=== PATIENT | female | born 1960 | race Caucasian/White ===

== ENCOUNTER → 2018-06-01 | Outpatient (CLI) | payer BC ==
[~2018-06-01] MED LIST: DOBUTamine DRIP for NUC MED 500 MG in DEXTROSE/WATER 1 250ML.BAG IV ONE
--- NOTE | 2018-06-01 15:43 | EST ---
EXERCISE STRESS AGE: 58 SEX: F HT: 5 foot 5 WT: 152 PROTOCOL: Stress Echo STAGE: III DURATION OF EXERCISE: 10:02 HEART RATE REST: 67 BLOOD PRESSURE REST: 110/72 MAXIMUM HEART RATE ACHIEVED: 143 MAXIMUM BLOOD PRESSURE: 159/80 85% MPHR: 137 100% MPHR: 161 METS: 11.5 CLINICAL INFORMATION: Baseline rhythm is sinus mechanism, rate of 67, normal axis and intervals normal cardiogram baseline blood pressure 110/72 mmHg. Patient exercised on Matt protocol for 10 minute 2 seconds reaching a peak rate of 143 beats per minute which is equal to 88% maximum predicted heart rate. Peak blood pressure 137/67 mmHg. Test was terminated because of fatigue. No chest pain. Electrocardiograph monitoring revealed no evidence of diagnostic ischemic ST deviation. FINDINGS: Baseline echocardiogram revealed normal function, at peak exercise there was normal wall motion augmentation with no hypokinesis or dyskinesis. CONCLUSION: 1. Good exercise tolerance with normal electrocardiograph response to exercise. 2. Normal stress echocardiogram with no evidence of stress induced ischemia. MMODL / IJN: [id number] /
== END | disposition home or self-care (01) ==
LOC: RADNMMAIN 09:43
PROVIDERS: ATTEND Family Medicine
DX: R06.00 Dyspnea, unspecified (principal)
CPT/HCPCS: 93351; J1250

== ENCOUNTER → 2019-09-04 | Outpatient (CLI) | payer BC ==
--- NOTE | 2019-09-04 15:10 | CT ---
EXAMINATION TYPE: CT abdomen pelvis wo con DATE OF EXAM: 09/04/2019 COMPARISON: None HISTORY: Recurrent bladder infections with flank pain CT DLP: 404.9 mGycm Examination of the solid and hollow viscera is limited given the lack of contrast. FINDINGS: LUNG BASES: No evidence for nodule. No evidence for infiltrate. LIVER/GB: The gallbladder surgically absent. No space-occupying hepatic lesion. PANCREAS: No pancreatic mass identified. No inflammatory process seen. SPLEEN: No evidence for splenomegaly. No intrasplenic lesions seen. ADRENALS: No adrenal nodules identified. No evidence for thickening. KIDNEYS: No evidence for renal mass. No nephrolithiasis. No hydronephrosis. BOWEL: Appendix has a normal appearance. No evidence of bowel obstruction. No inflammatory process. M ild fecal stasis noted. Lymph nodes: No evidence for adenopathy greater than 1 cm. Abdominal aorta: Atheromatous changes seen. No evidence for aneurysm. Genital organs: No obvious uterine mass is identified. No evidence for adnexal mass. Other: Severe degenerative change of with vacuum disc L5-S1. IMPRESSION: NO SIGNIFICANT ACUTE ABNORMALITY OF THE ABDOMEN OR PELVIS.
== END | disposition home or self-care (01) ==
LOC: RADCTMAIN 14:43
PROVIDERS: ATTEND Nurse Practitioner Adult Health
DX: D25.9 Leiomyoma of uterus, unspecified (principal)
CPT/HCPCS: 74176

== ENCOUNTER 2020-05-13 08:52 | Emergency (ER) | payer BC ==
[2020-05-13 08:58] VITALS: TEMP 98.3
[2020-05-13] MEDS ORDERED: KETOROLAC 30 MG/ML 1 ML VIAL IVP STA (09:13)
[2020-05-13] MEDS ORDERED: SODIUM CHLORIDE 0.9% 1,000 ML IV STA ×2 (09:13)
[2020-05-13] MEDS ORDERED: MORPHINE SULFATE 4 MG/ML SYRINGE IV STA (09:13)
[2020-05-13] MEDS ORDERED: ONDANSETRON 4 MG/2 ML VIAL IVP STA (09:13)
--- NOTE | 2020-05-13 09:16 | ED ---
Abdominal Pain HPI - General Chief Complaint: Abdominal Pain Stated Complaint: Abd Pain Time Seen by Provider: 05/13/20 08:59 Source: patient, RN notes reviewed, old records reviewed Mode of arrival: ambulatory Limitations: no limitations - History of Present Illness Initial Comments: Patient is a 60-year-old female presents for his parents today with sharp lower abdominal pain between the right and left lower quadrants for the past 3 days. She was sent here by her PCP for further evaluation for concerns for possible appendicitis are related to uterine fibroid. Patient states that she has no abnormal vaginal bleeding. She reports the pain seems to be sharp and stabbing in nature. Denies any nausea or vomiting. Denies any fevers. She reports that she has recently been under stress that she's been taking care of her is in the hospital receiving a knee replacement. Patient reports a previous cholecystectomy. - Related Data Home Medications Medication Instructions Recorded Confirmed Omeprazole [PriLOSEC] 20 mg PO DAILY 02/14/14 05/13/20 Sertraline [Zoloft] 100 mg PO DAILY 02/14/14 05/13/20 Tiotropium 18 Mcg/Puff [Spiriva] 1 puff INHALATION DAILY 02/14/14 05/13/20 Acetaminophen [Tylenol Arthritis] 1,300 mg PO HS PRN 05/13/20 05/13/20 Cetirizine HCl [Zyrtec] 10 mg PO DAILY 05/13/20 05/13/20 Oxybutynin Chloride [Ditropan XL] 5 mg PO DAILY 05/13/20 05/13/20 Previous Rx's Medication Instructions Recorded Cephalexin [Keflex] 500 mg PO Q6HR 7 Days #28 cap 05/13/20 Metoclopramide [Reglan] 10 mg PO ACHS #15 tab 05/13/20 Allergies Allergy/AdvReac Type Severity Reaction Status Date / Time No Known Allergies Allergy Verified 05/13/20 09:24 Review of Systems ROS Statement: Those systems with pertinent positive or pertinent negative responses have been documented in the HPI. ROS Other: All systems not noted in ROS Statement are negative. Past Medical History Past Medical History: COPD, GERD/Reflux, Osteoarthritis (OA) Additional Past Medical History / Comment(s): SOB w/activity, ulcerated spots in esophagus History of Any Multi-Drug Resistant Organisms: None Reported Past Surgical History: Breast Surgery, Cholecystectomy, Orthopedic Surgery, Tubal Ligation Additional Past Surgical History / Comment(s): hemangioma removed rt leg, bunion surg., breast biopsy Past Anesthesia/Blood Transfusion Reactions: Motion Sickness Past Psychological History: No Psychological Hx Reported Smoking Status: Never smoker Past Alcohol Use History: None Reported Past Drug Use History: None Reported General Exam - General Exam Comments Initial Comments: Pt is a tearful 60-year-old female. Limitations: no limitations Head exam: Present: atraumatic, normocephalic, normal inspection Eye exam: Present: normal appearance, PERRL, EOMI. Absent: scleral icterus, conjunctival injection, periorbital swelling ENT exam: Present: normal exam, mucous membranes moist Neck exam: Present: normal inspection. Absent: tenderness, meningismus, lymphadenopathy Respiratory exam: Present: normal lung sounds bilaterally. Absent: respiratory distress, wheezes, rales, rhonchi, stridor Cardiovascular Exam: Present: regular rate, normal rhythm, normal heart sounds. Absent: systolic murmur, diastolic murmur, rubs, gallop, clicks GI/Abdominal exam: Present: soft, normal bowel sounds. Absent: distended, tenderness, guarding, rebound, rigid Extremities exam: Present: normal inspection, full ROM, normal capillary refill. Absent: tenderness, pedal edema, joint swelling, calf tenderness Back exam: Present: normal inspection Neurological exam: Present: alert, oriented X3, CN II-XII intact Psychiatric exam: Present: normal affect, normal mood Skin exam: Present: warm, dry, intact, normal color. Absent: rash Course Vital Signs 05/13/20 05/13/20 05/13/20 08:56 09:29 09:30 Temperature 98.3 F Pulse Rate 77 Respiratory 17 14 14 Rate Blood Pressure 148/94 O2 Sat by Pulse 97 97 95 Oximetry 05/13/20 05/13/20 05/13/20 09:31 10:00 10:59 Temperature Pulse Rate 64 70 Respiratory 14 14 14 Rate Blood Pressure 143/87 143/87 145/85 O2 Sat by Pulse 98 97 97 Oximetry 05/13/20 05/13/20 11:53 13:04 Temperature Pulse Rate 72 66 Respiratory 18 18 Rate Blood Pressure 152/84 146/95 O2 Sat by Pulse 96 100 Oximetry - Reevaluation(s) Reevaluation #1: 05/13/20 10:35 Patient was evaluated informed of lab results and CT findings with daughter bedside. Daughters are in the hospital. Her labs are normal and CT shows mild ileus on left abdomen and uterine fibroid but no other significant symptoms related Patient abdominal pain. No signs of appendicitis. Patient still is complaining of significant sharp pains. This has only other testing to evaluate would be ultrasound to evaluate fibroid. Patient states she feels that she is have this completed today. She does not have this type of pain ever in the past. Medical Decision Making - Medical Decision Making 60 year old female with sharp abdominal pains for 4 days and sent by PCP. She has no vomiting, is passing gas and had normal BM. Patient had diffuse tenderness on exam, and CT ordered to rule out appendicitis. Patient at this time CT shows mild ileus, but has no symptoms or concern for obstruction. Patient has uterine fibroid on CT scan and after reeval was still in pain. Labs were normal. She has no vaginal bleeding. US was completed today showing 1cm cervical lesion. Discussed PCP follow up. Discussed reglan to promote GI motility and decrease nausea, and Rx for minor UTI. Urine culture obtained. - Lab Data Result diagrams: 05/13/20 09:20 05/13/20 09:20 Lab Results 05/13/20 05/13/20 05/13/20 Range/Units 09:20 09:20 09:20 WBC 4.4 (3.8-10.6) k/uL RBC 4.52 (3.80-5.40) m/uL Hgb 13.8 (11.4-16.0) gm/dL Hct 41.4 (34.0-46.0) % MCV 91.5 (80.0-100.0) fL MCH 30.5 (25.0-35.0) pg MCHC 33.4 (31.0-37.0) g/dL RDW 12.6 (11.5-15.5) % Plt Count 199 (150-450) k/uL Neutrophils % 57 % Lymphocytes % 31 % Monocytes % 6 % Eosinophils % 4 % Basophils % 1 % Neutrophils # 2.5 (1.3-7.7) k/uL Lymphocytes # 1.4 (1.0-4.8) k/uL Monocytes # 0.3 (0-1.0) k/uL Eosinophils # 0.2 (0-0.7) k/uL Basophils # 0.1 (0-0.2) k/uL PT 10.0 (9.0-12.0) sec INR 1.0 (<1.2) APTT 23.7 (22.0-30.0) sec Sodium (137-145) mmol/L Potassium (3.5-5.1) mmol/L Chloride (98-107) mmol/L Carbon Dioxide (22-30) mmol/L Anion Gap mmol/L BUN (7-17) mg/dL Creatinine (0.52-1.04) mg/dL Est GFR (CKD-EPI)AfAm (>60 ml/min/1.73 sqM) Est GFR (CKD-EPI)NonAf (>60 ml/min/1.73 sqM) Glucose (74-99) mg/dL Plasma Lactic Acid Kyle (0.7-2.0) mmol/L Calcium (8.4-10.2) mg/dL Total Bilirubin (0.2-1.3) mg/dL AST (14-36) U/L ALT (4-34) U/L Alkaline Phosphatase (38-126) U/L Total Protein (6.3-8.2) g/dL Albumin (3.5-5.0) g/dL Amylase (30-110) U/L Lipase (23-300) U/L Urine Color Yellow Urine Appearance Clear (Clear) Urine pH 6.5 (5.0-8.0) Ur Specific [place] 1.026 (1.001-1.035) Urine Protein Trace H (Negative) Urine Glucose (UA) Negative (Negative) Urine Ketones Negative (Negative) Urine Blood Negative (Negative) Urine Nitrite Negative (Negative) Urine Bilirubin Negative (Negative) Urine Urobilinogen <2.0 (<2.0) mg/dL Ur Leukocyte Esterase Large H (Negative) Urine RBC 4 (0-5) /hpf Urine WBC 12 H (0-5) /hpf Ur Squamous Epith Cells 5 H (0-4) /hpf Urine Bacteria Rare H (None) /hpf Urine Mucus Many H (None) /hpf 05/13/20 05/13/20 Range/Units 09:20 09:20 WBC (3.8-10.6) k/uL RBC (3.80-5.40) m/uL Hgb (11.4-16.0) gm/dL Hct (34.0-46.0) % MCV (80.0-100.0) fL MCH (25.0-35.0) pg MCHC (31.0-37.0) g/dL RDW (11.5-15.5) % Plt Count (150-450) k/uL Neutrophils % % Lymphocytes % % Monocytes % % Eosinophils % % Basophils % % Neutrophils # (1.3-7.7) k/uL Lymphocytes # (1.0-4.8) k/uL Monocytes # (0-1.0) k/uL Eosinophils # (0-0.7) k/uL Basophils # (0-0.2) k/uL PT (9.0-12.0) sec INR (<1.2) APTT (22.0-30.0) sec Sodium 139 (137-145) mmol/L Potassium 3.8 (3.5-5.1) mmol/L Chloride 105 (98-107) mmol/L Carbon Dioxide 28 (22-30) mmol/L Anion Gap 6 mmol/L BUN 8 (7-17) mg/dL Creatinine 0.72 (0.52-1.04) mg/dL Est GFR (CKD-EPI)AfAm >90 (>60 ml/min/1.73 sqM) Est GFR (CKD-EPI)NonAf >90 (>60 ml/min/1.73 sqM) Glucose 110 H (74-99) mg/dL Plasma Lactic Acid Kyle 0.9 (0.7-2.0) mmol/L Calcium 9.2 (8.4-10.2) mg/dL Total Bilirubin 1.2 (0.2-1.3) mg/dL AST 31 (14-36) U/L ALT 29 (4-34) U/L Alkaline Phosphatase 73 (38-126) U/L Total Protein 7.0 (6.3-8.2) g/dL Albumin 4.1 (3.5-5.0) g/dL Amylase 49 (30-110) U/L Lipase 94 (23-300) U/L Urine Color Urine Appearance (Clear) Urine pH (5.0-8.0) Ur Specific [place] (1.001-1.035) Urine Protein (Negative) Urine Glucose (UA) (Negative) Urine Ketones (Negative) Urine Blood (Negative) Urine Nitrite (Negative) Urine Bilirubin (Negative) Urine Urobilinogen (<2.0) mg/dL Ur Leukocyte Esterase (Negative) Urine RBC (0-5) /hpf Urine WBC (0-5) /hpf Ur Squamous Epith Cells (0-4) /hpf Urine Bacteria (None) /hpf Urine Mucus (None) /hpf 05/13/20 10:34 05/13/20 10:35 - Radiology Data Radiology results: report reviewed CT shows mild fatty infiltration of the liver. Mild left mid abdomen ileus should be considered. No changes consistent with to suggest obstruction or identified. There is thickening hypodensity within the mid uterus. Uterine fibroid and thickened endometrial canal to be considered. Additional evaluation pelvic ultrasound can be performed. Normal appendix. Discrete abnormality right lower quadrant pain referring to the left is not isolated. Ultrasound shows a nonspecific cervical lesion. Hypocholic area near the cervix measuring 1.2 x 1 cm. Disposition Clinical Impression: Abdominal pain, Ileus, unspecified, UTI (urinary tract infection) Disposition: HOME SELF-CARE Condition: Good Instructions (If sedation given, give patient instructions): Abdominal Pain (ED) Additional Instructions: Using the nausea medication as prescribed. Recommended close follow-up with [facility] doctor. Walk and drink plenty of fluids. Return to ER if there is slight decrease her lack of bowel movements or severe vomiting or worsening pain. Prescriptions: Cephalexin [Keflex] 500 mg PO Q6HR 7 Days #28 cap Metoclopramide [Reglan] 10 mg PO ACHS #15 tab Is patient prescribed a controlled substance at d/c from ED?: No Referrals: Hermilo Leach MD [Primary Care Provider] - 1-2 days Time of Disposition: 12:24
[2020-05-13 09:32] LABS: Basophils # (A) 0.1 k/uL (0-0.2); Basophils % (A) 1 %; Eosinophils # (A) 0.2 k/uL (0-0.7); Eosinophils % (A) 4 %; HCT 41.4 % (34.0-46.0); HGB 13.8 gm/dL (11.4-16.0); Lymphocytes # (A) 1.4 k/uL (1.0-4.8); Lymphocytes % (A) 31 %; MCH 30.5 pg (25.0-35.0); MCHC 33.4 g/dL (31.0-37.0); MCV 91.5 fL (80.0-100.0); Monocytes # (A) 0.3 k/uL (0-1.0); Monocytes % (A) 6 %; Neutrophils # (A) 2.5 k/uL (1.3-7.7); Neutrophils % (A) 57 %; Platelet Count 199 k/uL (150-450); RBC 4.52 m/uL (3.80-5.40); RDW 12.6 % (11.5-15.5); WBC 4.4 k/uL (3.8-10.6)
[2020-05-13 09:37] LABS: Appearance,Urine Clear (Clear); Bacteria,Urine Rare /hpf; Bilirubin,Urine Negative (Negative); Blood,Urine Negative (Negative); Color,Urine Yellow; Glucose,Urine (UA) Negative (Negative); Ketones,Urine Negative (Negative); Leukocyte Esterase,Urine Large (Negative); Mucus,Urine Many /hpf; Nitrite,Urine Negative (Negative); PH, Urine 6.5 (5.0-8.0); Protein,Urine Trace (Negative); RBC,Urine 4 /hpf (0-5); Specific Gravity,Urine 1.026 (1.001-1.035); Squamous Epithelial Cell,Urine 5 /hpf (0-4); Urobilinogen,Urine <2.0 mg/dL (<2.0); WBC,Urine 12 /hpf (0-5)
[2020-05-13 09:44] LABS: Partial Thromboplastin Time 23.7 sec (22.0-30.0)
[2020-05-13 09:52] LABS: ALT 29 U/L (4-34); AST 31 U/L (14-36); African American GFR (CKD) >90 (>60 ml/min/1.73 sqM); Albumin 4.1 g/dL (3.5-5.0); Alkaline Phosphatase 73 U/L (38-126); Amylase 49 U/L (30-110); Anion Gap 6 mmol/L; Blood Urea Nitrogen 8 mg/dL (7-17); Calcium 9.2 mg/dL (8.4-10.2); Carbon Dioxide 28 mmol/L (22-30); Chloride 105 mmol/L (98-107); Glucose 110 mg/dL (74-99); Non-African American GFR(CKD) >90 (>60 ml/min/1.73 sqM); Potassium 3.8 mmol/L (3.5-5.1); Sodium 139 mmol/L (137-145); Total Bilirubin 1.2 mg/dL (0.2-1.3)
--- NOTE | 2020-05-13 10:11 | CT ---
EXAMINATION TYPE: CT abdomen pelvis w con DATE OF EXAM: 05/13/2020 COMPARISON: 09/04/2019 INDICATION: Abdominal pain, RLQ, referred left. DLP: 933.7 mGycm, Automated exposure control for dose reduction was used. CONTRAST: 100 mL of Isovue 300. Study performed without Oral Contrast TECHNIQUE: Axial images were obtained from above the diaphragm to the pubic rami in the axial plane a t 5 mm thick sections. Reconstructed images are reviewed on the computer in the coronal plane. FINDINGS: Limited CT sections are obtained the lung bases. The lung bases are clear. CT ABDOMEN: Liver: There is mild fatty infiltration the liver. Spleen: Normal. Small splenule is inferior to the spleen. Pancreas: Normal Adrenal glands: The adrenal glands are normal. Gallbladder: Surgically absent Kidneys: No masses are evident. No hydronephrosis is present. No cysts are present. Delayed images were obtained through the kidneys, which remain unremarkable. Aorta: Vascular calcification is within the aorta. Inferior vena cava: Normal. CT PELVIS: Loops of bowel within the abdomen and pelvis are normal. There are some fluid-filled mid left abdome n small bowel loops at the upper limits of normal for size could be some mild ileus. Remaining loops of bowel within the colon distal small bowel and proximal jejunum appear normal without oral contrast . Study is without oral contrast limiting bowel evaluation. Appendix: Normal as visualized. Urinary bladder: Decompressed with some limitation on evaluation. Genitourinary structures: Uterus may have a hypodensity could be a large fibroid. Consider correlatio n with ultrasound to evaluate endometrial stripe. The adnexal regions are unremarkable. Osseous structures: No suspicious lytic or sclerotic lesions. IMPRESSIONS: 1. Mild fatty infiltration liver. 2. Mild left midabdomen ileus should be considered. No change suggest obstruction are identified. 3. Thickening hypodensity within the mid uterus. Uterine fibroid and thickened endometrial canal shou ld be considered. Additional evaluation with pelvic ultrasound can be performed. 4. Normal appendix. 5. Discrete abnormality to account for right lower quadrant pain referring to the left is not identif ied.
[2020-05-13 11:54] VITALS: RESP 18
--- NOTE | 2020-05-13 11:58 | US ---
EXAMINATION TYPE: US transvaginal DATE OF EXAM: 05/13/2020 COMPARISON: NONE CLINICAL HISTORY: uterine fibroid, abdominal pain, . Pain TECHNIQUE: Transvaginal (TV). EXAM MEASUREMENTS: Uterus: 6.0 x 2.8 x 3.6 cm Endometrial Stripe: .3 cm 1. Uterus: Anteverted Hypoechoic area near cervix 1.2 x 1.0 x 1.4 cm. Echogenic area near endometri um 3 mm. 2. Endometrium: appears wnl 3. Right Ovary: Obscured by overlying bowel gas 4. Left Ovary: Obscured by overlying bowel gas 5. Bilateral Adnexa: wnl 6. Posterior cul-de-sac: wnl IMPRESSION: Nonspecific cervical lesion.
[2020-05-13 13:06] VITALS: BP 146/95; PULSE 66
== END 2020-05-13 13:08 | disposition home or self-care (01) ==
LOC: EC 08:52
DX: K56.7 Ileus, unspecified (principal); N39.0 Urinary tract infection, site not specified; D25.9 Leiomyoma of uterus, unspecified; K21.9 Gastro-esophageal reflux disease without esophagitis; J44.9 Chronic obstructive pulmonary disease, unspecified; Z79.899 Other long term (current) drug therapy; Z79.51 Long term (current) use of inhaled steroids; Z90.49 Acquired absence of other specified parts of digestive tract
CPT/HCPCS: 36415; 80053; 82150; 83605; 83690; 85025; 85610; 85730; 81001; 87086; 76830; 74177; 99284; 96374; 96375 ×2; 96361 ×4; J2270; J2405; J1885; Q9967

== ENCOUNTER → 2021-03-25 | Outpatient (CLI) | payer BC ==
--- NOTE | 2021-03-25 12:40 | XR ---
EXAMINATION TYPE: XR chest 1V, XR abdomen 1V DATE OF EXAM: 03/25/2021 COMPARISON: CT abdomen and pelvis May 13, 2020 HISTORY: Swallowed dental bridge. TECHNIQUE: Single frontal view of the chest and abdomen are obtained. FINDINGS: Lungs are grossly clear. The cardiac silhouette size is within normal limits with atheros clerotic change aortic knob. The osseous structures are intact. Cholecystectomy clips. Ingested dental bridge projects over the left iliac crest. Overall nonobstruct gregorio bowel gas pattern. Entire pelvis was not imaged. IMPRESSION: As above. Ingested metallic foreign body in the left lower quadrant/upper pelvis likely within distal jejunal loops.
== END | disposition home or self-care (01) ==
LOC: RADXRMAIN 11:55
DX: T18.8XXA Foreign body in other parts of alimentary tract, initial encounter (principal)
CPT/HCPCS: 71045; 74018

== ENCOUNTER 2022-06-27 18:13 | Inpatient (IN) | payer BC ==
[2022-06-27 18:59] LABS: Basophils % (A) 1 %; Eosinophils # (A) 0.1 k/uL (0-0.7); Eosinophils % (A) 2 %; HCT 40.2 % (34.0-46.0); Lymphocytes # (A) 1.2 k/uL (1.0-4.8); Lymphocytes % (A) 20 %; MCH 33.1 pg (25.0-35.0); MCHC 34.8 g/dL (31.0-37.0); MCV 95.3 fL (80.0-100.0); Monocytes # (A) 0.4 k/uL (0-1.0); Monocytes % (A) 6 %; Neutrophils # (A) 4.4 k/uL (1.3-7.7); Neutrophils % (A) 71 %; Platelet Count 207 k/uL (150-450); RBC 4.22 m/uL (3.80-5.40); RDW 13.1 % (11.5-15.5); WBC 6.3 k/uL (3.8-10.6)
--- NOTE | 2022-06-27 19:00 | XR ---
EXAMINATION TYPE: XR chest 2V DATE OF EXAM: 06/27/2022 COMPARISON: 03/25/2021 HISTORY: Chest pain TECHNIQUE: 2 views FINDINGS: Heart is normal. Lungs are clear of infiltrate. No heart failure. There are no hilar masses . Chest leads. Costophrenic angles are clear. The bony thorax is intact. IMPRESSION: No active cardiopulmonary disease. Normal heart. No change.
[2022-06-27 19:17] LABS: Albumin 4.5 g/dL (3.5-5.0); Calcium 9.6 mg/dL (8.4-10.2); Magnesium 2.3 mg/dL (1.6-2.3); Potassium 3.6 mmol/L (3.5-5.1); Total Bilirubin 1.8 mg/dL (0.2-1.3); Total Protein 6.9 g/dL (6.3-8.2)
[2022-06-27 19:21] LABS: INR 0.9 (<1.2); Prothrombin Time 10.2 sec (9.0-12.0)
[2022-06-27] MEDS ORDERED: ONDANSETRON 4 MG/2 ML VIAL IVP STA (19:23)
[2022-06-27] MEDS ORDERED: MORPHINE SULFATE 4 MG/ML SYRINGE IVP STA (19:23)
--- NOTE | 2022-06-27 20:17 | ED ---
Chest Pain HPI - General Chief Complaint: Chest Pain Stated Complaint: poss heartattack Time Seen by Provider: 06/27/22 18:45 Source: patient Mode of arrival: ambulatory Limitations: no limitations - History of Present Illness Initial Comments: 62-year-old female with past medical history of COPD, acid reflux percents the emergency department with chest pain. Described as a right-sided chest pain which radiates into her bilateral neck. Describes it as a burning sensation graded 10 out of 10. She has been taking Maalox, Tums and omeprazole without any improvement in her symptoms. Pain has been present for the past 3 days. She denies previous history of cardiac disease. She had a stress test performed a few months ago that was reportedly negative per the patient. She has never had a cardiac cath. She denies ripping or tearing sensation to her back. Does admit to exertional shortness of breath. No history of DVT or PE. No calf pain or swelling. Patient also had an EGD last year which showed mild gastritis. No fevers, chills or cough. No other alleviating, precipitating or modifying factors - Related Data Home Medications Medication Instructions Recorded Confirmed Sertraline [Zoloft] 150 mg PO DAILY 02/14/14 06/27/22 Cetirizine HCl [Zyrtec] 10 mg PO DAILY 05/13/20 06/27/22 Cephalexin [Keflex] 2,000 mg PO ONCE PRN 06/27/22 06/27/22 Oxybutynin Chloride [Ditropan XL] 10 mg PO DAILY 06/27/22 06/27/22 clindamycin HCL 300 mg PO TID 06/27/22 06/27/22 traMADol HCL 50 mg PO Q6H PRN 06/27/22 06/27/22 Allergies Allergy/AdvReac Type Severity Reaction Status Date / Time No Known Allergies Allergy Verified 06/27/22 20:48 Review of Systems ROS Statement: Those systems with pertinent positive or pertinent negative responses have been documented in the HPI. ROS Other: All systems not noted in ROS Statement are negative. EKG Findings - EKG Comments: EKG Findings:: EKG demonstrates sinus rhythm with a rate of 88. MD interval 112. QRS 77. QTC of 43. Q wave in lead 3. Minor ST depression V2 V3. No acute ST segment elevations Past Medical History Past Medical History: COPD, GERD/Reflux, Osteoarthritis (OA) Additional Past Medical History / Comment(s): SOB w/activity, ulcerated spots in esophagus History of Any Multi-Drug Resistant Organisms: None Reported Past Surgical History: Breast Surgery, Cholecystectomy, Orthopedic Surgery, Tubal Ligation Additional Past Surgical History / Comment(s): hemangioma removed rt leg, bunion surg., breast biopsy Past Anesthesia/Blood Transfusion Reactions: Motion Sickness Past Psychological History: No Psychological Hx Reported Smoking Status: Never smoker Past Alcohol Use History: None Reported Past Drug Use History: None Reported General Exam Limitations: no limitations Course Vital Signs 06/27/22 06/27/22 06/27/22 18:21 19:00 20:00 Temperature 96.8 F L Pulse Rate 98 93 86 Respiratory 20 18 16 Rate Blood Pressure 120/73 147/108 137/76 O2 Sat by Pulse 99 96 92 L Oximetry 06/27/22 21:35 Temperature Pulse Rate 77 Respiratory 16 Rate Blood Pressure 118/75 O2 Sat by Pulse 98 Oximetry Chest Pain MDM - MDM Upon arrival patient was placed into room 7. A thorough history and physical exam was performed. IV access is established laboratory studies were conducted. Patient was given 4 mg of morphine for pain control. Chest x-ray is performed which showed traits noted process. Troponin is negative. Results are discussed the patient. I did discuss diagnosis, differential and treatment options. Trent carmona agreeable for overnight observation. Spoke with Dr. Wallace who will admit the patient Disposition Clinical Impression: Chest pain Disposition: ADMITTED IP TO THIS HOSP Condition: Stable Is patient prescribed a controlled substance at d/c from ED?: No Time of Disposition: 20:35 Decision to Admit Reason: Admit from EC Decision Date: 06/27/22 Decision Time: 20:35
[2022-06-27] MEDS ORDERED: ONDANSETRON 4 MG/2 ML VIAL IVP PRN (20:35)
[2022-06-27] MEDS ORDERED: NALOXONE 0.4 MG/ML 1 ML VIAL IV PRN (20:35)
[2022-06-27] MEDS ORDERED: ASPIRIN 81 MG PO STA (21:50)
[2022-06-28] MEDS: MORPHINE SULFATE 4 MG/ML SYRINGE IV PRN ×4 (01:44→20:01)
[2022-06-28 01:54] LABS: Basophils % (A) 1 %; Eosinophils # (A) 0.1 k/uL (0-0.7); Eosinophils % (A) 2 %; HCT 36.8 % (34.0-46.0); HGB 12.3 gm/dL (11.4-16.0); Lymphocytes # (A) 1.3 k/uL (1.0-4.8); Lymphocytes % (A) 28 %; MCH 31.7 pg (25.0-35.0); MCHC 33.3 g/dL (31.0-37.0); MCV 95.1 fL (80.0-100.0); Monocytes # (A) 0.3 k/uL (0-1.0); Monocytes % (A) 7 %; Neutrophils # (A) 2.9 k/uL (1.3-7.7); Neutrophils % (A) 61 %; Platelet Count 158 k/uL (150-450); RBC 3.87 m/uL (3.80-5.40); RDW 12.5 % (11.5-15.5); WBC 4.7 k/uL (3.8-10.6)
[2022-06-28 02:15] LABS: Calcium 8.8 mg/dL (8.4-10.2); Potassium 3.8 mmol/L (3.5-5.1)
--- NOTE | 2022-06-28 02:29 | P.HPIM ---
History of Present Illness H&P Date: 06/27/22 Chief Complaint: chest pain 62-year-old female with history of GERD Patient comes in complaining of couple day history of recurrent episodes of chest pain initially she thought it was acid reflux however it wasn't responding to any of her antireflux medications. Scripts the pain is right-sided and gastric radiating to both years associated with feeling nauseous denies any associated vomiting shortness of breath profuse sweating or palpitations or dizziness. Each episode usually lasts around 15 minutes goes away on its own. Not related to activity usually these episodes happens at rest. She denies any cardiac history in the past she had multiple stress tests in the past and were negative. She denies any tobacco smoking illicit drugs or alcohol abuse She denies any fevers chills upper respiratory infection symptoms denies any coughing denies any abdominal pain denies any changes in bowel or urinary habits denies any GI bleeding She is currently on some antibiotics for anticipated with canal surgery next week. In the ED initial workup was unremarkable troponins negative EKG no acute st changs Review of Systems Pertinent positives as noted in HPI. All other systems were reviewed and are negative Past Medical History Past Medical History: COPD, GERD/Reflux, Osteoarthritis (OA) Additional Past Medical History / Comment(s): SOB w/activity, ulcerated spots in esophagus History of Any Multi-Drug Resistant Organisms: None Reported Past Surgical History: Breast Surgery, Cholecystectomy, Orthopedic Surgery, Tubal Ligation Additional Past Surgical History / Comment(s): hemangioma removed rt leg, bunion surg., breast biopsy Past Anesthesia/Blood Transfusion Reactions: Motion Sickness Past Psychological History: No Psychological Hx Reported Smoking Status: Never smoker Past Alcohol Use History: None Reported Past Drug Use History: None Reported - Past Family History Family Family Medical History: Coronary Artery Disease (CAD) Additional Family Medical History / Comment(s): Reports coronary artery disease and her family Medications and Allergies Home Medications Medication Instructions Recorded Confirmed Type Sertraline [Zoloft] 150 mg PO DAILY 02/14/14 06/27/22 History Cetirizine HCl [Zyrtec] 10 mg PO DAILY 05/13/20 06/27/22 History Cephalexin [Keflex] 2,000 mg PO ONCE PRN 06/27/22 06/27/22 History Oxybutynin Chloride [Ditropan XL] 10 mg PO DAILY 06/27/22 06/27/22 History clindamycin HCL 300 mg PO TID 06/27/22 06/27/22 History traMADol HCL 50 mg PO Q6H PRN 06/27/22 06/27/22 History Allergies Allergy/AdvReac Type Severity Reaction Status Date / Time No Known Allergies Allergy Verified 06/27/22 20:48 Physical Exam Vitals: Vital Signs Temp Pulse Pulse Resp BP BP Pulse Ox 06/27/22 21:35 77 16 118/75 98 06/27/22 20:00 86 16 137/76 92 L 06/27/22 19:40 97.9 F 74 16 143/84 98 06/27/22 19:00 93 18 147/108 96 06/27/22 18:21 96.8 F L 98 20 120/73 99 Intake and Output 06/27/22 06/27/22 06/28/22 14:59 22:59 06:59 Other: Voiding Method Toilet # Voids 1 Weight 70.307 kg Constitutional: No acute distress, conversant, pleasant Eyes: Anicteric sclerae, moist conjunctiva, Pupils equal round reactive to light ENMT: NC/AT Oropharynx clear, no erythema, or exudates Neck: Supple, no masses, or JVD No carotid bruits No thyromegaly Lungs: Clear to auscultation Clear to percussion Normal respiratory effort, no accessory muscle use Cardiovascular: Heart regular in rate and rhythm, No murmurs, gallops, or rubs No peripheral edema Abdominal: Soft Nontender, no guarding, rebound or rigidity Abdomen moving with respiration Normoactive bowel sounds No hepatomegaly, No splenomegaly No palpable mass No abdominal wall hernia noted Skin: Normal temperature, tone, texture, turgor No induration No subcutaneous nodules No rash, lesions No ulcers Extremities: No digital cyanosis No clubbing Pedal pulses intact and symmetrical Radial pulses intact and symmetrical No calf tenderness Psychiatric: Alert and oriented to person, place and time Appropriate affect fair judgement Neuro Muscles Strength 5/5 in all 4 extremities Sensation to light touch grossly present throughout Cranial nerves II-XII grossly intact No focal sensory deficits Lymphatics: no palpable cervical or supraclavicular , or inguinal lymph nodes Results CBC & Chem 7: 06/28/22 01:34 06/28/22 01:34 Labs: Abnormal Lab Results - Last 24 Hours (Table) 06/27/22 06/28/22 Range/Units 18:47 01:34 Glucose 109 H 113 H (74-99) mg/dL Total Bilirubin 1.8 H (0.2-1.3) mg/dL AST 67 H (14-36) U/L ALT 64 H (4-34) U/L Assessment and Plan Assessment: atypical chest pain rule out ACS EKG no acute changes CXR no acute pathology trops negative X2 bar examiner monitor vital signs ASA, statin cardiology consult A1c, lipid panel , TSH pain control Full code DVT prophylaxis heparin subcu 3 times a day
[2022-06-28] MEDS ORDERED: AMINOPHYLLINE 500 MG/20 ML VIAL IV PRN (08:03)
[2022-06-28] MEDS ORDERED: REGADENOSON 0.4 MG/5 ML SYRINGE IV PRN (08:03)
[2022-06-28] MEDS ORDERED: CAFFEINE CITRATE 60 MG/3 ML VIAL IV PRN (08:03)
[2022-06-28] MEDS: HEPARIN SODIUM,PORCINE/PF 5,000 UNIT/0.5 ML SYRINGE SQ SCH ×2 (08:04→17:57)
[2022-06-28] MEDS: OXYBUTYNIN 10 MG TAB.ER.24 PO SCH (08:04)
[2022-06-28] MEDS: ATORVASTATIN 20 MG TAB PO SCH ×2 (08:05→10:43)
[2022-06-28] MEDS: LORATADINE 10 MG TAB PO SCH (08:05)
[2022-06-28] MEDS: SERTRALINE 50 MG TAB PO SCH (08:10)
[2022-06-28] MEDS ORDERED: ASPIRIN 81 MG PO SCH (09:00)
--- NOTE | 2022-06-28 09:01 | CONS ---
CONSULTATION CHIEF COMPLAINT: Chest pain. HISTORY OF PRESENT ILLNESS: Katia is a 62-year-old lady with history of COPD, osteoarthritis, and GERD, who presented to the hospital complaining of chest discomfort. For the last 2-1/2 days, she has had right-sided chest discomfort that apparently radiated to her neck. It is not associated with diaphoresis. There is no dizziness. There is no shortness of breath. There are no relieving or exacerbating factors. It was relieving on its own. Usually, these episodes are lasting for about 15 to 20 minutes at a time. It is mild in intensity. Last night, it got worse, came to the hospital, and got admitted. EKG does not reveal acute ischemia, it shows sinus rhythm with nonspecific ST-T wave changes. Three sets of troponins are negative. The patient has had negative stress test in the past. At the time of my evaluation, she is comfortable at rest and is free of symptoms. PAST MEDICAL HISTORY: Significant for osteoarthritis, COPD, and GERD. MEDICATIONS: Medications at home included: 1. Clindamycin. 2. Tramadol. 3. Zoloft. 4. Ditropan. 5. . FAMILY HISTORY: Negative for premature coronary artery disease. SOCIAL HISTORY: Negative for current smoking, EtOH abuse, or drug abuse. REVIEW OF SYSTEMS: HEENT: Unremarkable. CARDIAC: As described above. RESPIRATORY: Negative. GI: Negative. GENITOURINARY: Negative. ALLERGY/IMMUNOLOGY: Negative. SKIN: Negative. MUSCULOSKELETAL: Negative. ENDOCRINE: Negative. DERM: Negative. CONSTITUTIONAL: Negative. ONCOLOGICAL: Negative. HUMAN RESOURCES OFFICER: Negative. Rest of the system review is not relevant. PHYSICAL EXAMINATION: GENERAL: Comfortable at rest. VITAL SIGNS: Stable. NECK: There is no jugular venous distention. Carotid upstroke is normal. There is no bruit. CHEST: Reveals good air entry bilaterally. HEART: Reveals first and second heart sounds. No gallop. No murmur. ABDOMEN: Soft, nontender. EXTREMITIES: Examination of the extremities did not reveal any edema. Peripheral pulses are felt. DATA: EKG does not reveal ischemic changes. Cardiac enzymes have been negative. EKG shows nonspecific ST-T wave changes. ASSESSMENT AND PLAN: Precordial chest pain. The patient's chest discomfort is atypical. EKG does not reveal acute ischemic changes. Cardiac enzymes have been negative. I am going to schedule her for a Lexiscan, and if there is ischemia, perform cardiac catheterization. I will also obtain a 2D echo to evaluate LV function, aortic root, and the pericardium. We will decide on further course of action based on these test results. TREVA / JAZMIN: [id number] /
--- NOTE | 2022-06-28 09:32 | P.PN ---
Subjective Progress Note Date: 06/28/22 Hospital course: Patient is a very pleasant 62-year-old female with a past medical history of GERD and COPD. She presented to the emergency department with a chief complaint of chest pain. Patient reports initially she felt as though she was experiencing acid reflux but did not improve with her antireflux medications. Patient describes this chest pain as a burning sensation. She underwent full evaluation in the emergency department. EKG revealed normal sinus rhythm at 88 bpm. Chest x-ray negative for acute cardiopulmonary process. CBC unremarkable. Coags normal findings. D-dimer negative at 0.40. CMP revealing slight elevation in liver enzymes with total bili of 1.8, AST of 67, and ALT of 64. Troponin was negative at less than 0.012. Patient was admitted under our services with consultation to cardiology. Troponins were trended overnight all negative at less than 0.0123 draws. Lipid profile unremarkable. TSH normal findings at 2.340. Patient reports she is continuing to have burning sensation to right anterior chest. Skin was assessed negative for rash. Patient was given GI cocktail which she reports resolution of acid reflux but continuation of burning sensation to right anterior chest. Patient also developed bilateral parotid gland swelling overnight. Physical exam: Vital signs reviewed and stable. General: Nontoxic, no distress and appears stated age. Derm: Skin warm and dry, normal coloration for ethnicity. Head: Atraumatic, normocephalic and symmetric. Patient with bilateral parotid gland swelling worse on right. Eyes: EOMs intact, no lid lag, and anicteric sclera Mouth: no lip lesions, mucus membranes moist Cardiovascular: regular rate and rhythm with normal S1S2, no noted murmur, positive posterior tibial pulses bilaterally, and cap refill < 2 seconds. Lungs: Respirations even, regular, and unlabored on room air. Lungs CTA bilaterally, no rhonchi, no rales, no wheezing, and no accessory muscle usage. Abdominal: soft, nontender to palpation, no guarding, no appreciable organomegaly Ext: ROM intact. No gross muscle atrophy, no edema, no contractures Neuro: Speech clear, face symmetrical and CN II-XII grossly intact with no noted focal neuro deficits Psych: Alert and oriented to person, place, time, and situation. Appropriate and pleasant affect. Assessment and Plan of Care: Chest pain, rule out acute coronary event -Cardiology following taking patient for Lexiscan stress test today. -Telemetry monitoring -Troponins negative -Cardiac diet -Aspirin, atorvastatin, and metoprolol -Lipid profile unremarkable -Echocardiogram Bilateral Parotiditis -Fabian-Avila virus, mumps IgM, and Covid PCR to be obtained. -ENT consulted -Symptomatic care increase oral intake of oral fluids and encourage patient to suck on lemon drops which her daughter was going to get from store for her. CODE STATUS: Full code DVT prophylaxis: Heparin Discussed with: Patient, patient's daughter, and RN Anticipated discharge date: Likely within the next [address]: Home A total of 38 minutes was spent on the care of this complex patient more than 50% of the time was spent in counseling and care coordination. I reviewed the documentation as provided by the XOCHILT above, who is the original author of this note. I agree with the documented assessment and plan, with the following changes: none Objective - Vital Signs Vital signs: Vital Signs Temp 97.7 F 06/28/22 07:00 Pulse 71 06/28/22 07:00 Resp 17 06/28/22 07:00 BP 129/76 06/28/22 07:00 Pulse Ox 98 06/28/22 07:00 FiO2 Intake & Output 06/27/22 06/28/22 06/28/22 18:59 06:59 18:59 Weight 70.307 kg 70.307 kg Other: Voiding Method Toilet # Voids 2 - Labs CBC & Chem 7: 06/28/22 05:44 06/28/22 05:44 Labs: Abnormal Lab Results - Last 24 Hours (Table) 06/27/22 06/28/22 Range/Units 18:47 01:34 Glucose 109 H 113 H (74-99) mg/dL Total Bilirubin 1.8 H (0.2-1.3) mg/dL AST 67 H (14-36) U/L ALT 64 H (4-34) U/L
[2022-06-28 09:37] LABS: Basophils # (A) 0.02 X 10*3/uL (0.00-0.10); Basophils % (A) 0.6 %; Eosinophils % (A) 2.9 %; HCT 36.8 % (37.2-46.3); HGB 12.3 g/dL (12.0-15.0); Immature Grans, Automated 0.3 %; Lymphocytes # (A) 1.12 X 10*3/uL (0.90-5.00); Lymphocytes % (A) 32.7 %; MCH 32.3 pg (27.0-32.0); MCHC 33.4 g/dL (32.0-37.0); MCV 96.6 fL (80.0-97.0); Mean Platelet Volume 10.4 fL (9.5-12.2); Monocytes # (A) 0.26 X 10*3/uL (0.20-1.00); Monocytes % (A) 7.6 %; NRBC Per 100 WBC 0 /100 WBCS (0.0-0.0); Neutrophils # (A) 1.92 X 10*3/uL (1.80-7.70); Neutrophils % (A) 55.9 %; Platelet Count 168 X 10*3/uL (140-440); RBC 3.81 X 10*6/uL (4.10-5.20); RDW 12.6 % (11.5-14.5); WBC 3.43 X 10*3/uL (4.50-10.00)
[2022-06-28 09:38] LABS: Chol/HDL Ratio 3.82 Ratio; LDL Cholesterol,Calculated 125.2 mg/dL (0.0-131.0)
[2022-06-28 09:49] LABS: African American GFR (CKD) 90.9 (60.0-200.0); Blood Urea Nitrogen 12.4 mg/dL (9.0-27.0); Calcium 8.9 mg/dL (8.7-10.3); Carbon Dioxide 30.1 mmol/L (20.0-27.5); Chloride 104 mmol/L (96-109); Glucose 97 mg/dL (70-110); Non-African American GFR(CKD) 78.5 (60.0-200.0); Potassium 4.2 mmol/L (3.5-5.5); Sodium 144 mmol/L (135-145)
[2022-06-28] MEDS ORDERED: MAG HYDROX/AL HYDROX/SIMETH 30 ML, HYOSCYAMINE ELIXIR 10 ML, LIDOCAINE VISCOUS 2% 10 ML PO ONE ×3 (10:00)
--- NOTE | 2022-06-28 14:53 | NM ---
EXAMINATION TYPE: NM stress lexiscan cardiolite DATE OF EXAM: 06/28/2022 COMPARISON: NONE HISTORY: 62-year-old female with chest pain TECHNIQUE: After the intravenous administration of 9.1 mCi Tc 99m Sestamibi - Cardiolite resting SPE CT images acquired 45 minutes post injection. The patient received 0.4mg Lexiscan, 25.6 mCi Tc 99m Sestamibi - Stress images obtained [address] injection FINDINGS: Review of stress and rest SPECT images demonstrates reversibility along the mid to basal septal wall. Gated analysis shows limited augmentation of this region. Estimated LVEF of 65%. TID is calculated a t 0.66, within normal limits. IMPRESSION: Apparent reversibility along the mid to basal septal wall. Unable to exclude inducible is chemia here. Further workup as clinically indicated.
--- NOTE | 2022-06-28 17:33 | CA ---
Transthoracic Echo Report Name: Katia Gonzales Age: 62 Gender: F : 1960 Exam Date: 06/28/2022 13:55 Exam Location: [facility] Ht (in): 65 Wt (lb): 155 Ordering Physician: Alexis Arambula MD ([id number]) Attending/Referring Phys: Tyesha LE Resident Care Spec Radha Carey RDCS Procedure CPT: Indications: Chest Pain Cardiac Hx: Technical Quality: Fair Contrast 1: Total Dose (mL): Contrast 2: Total Dose (mL): MEASUREMENTS (Male / Female) Normal Values 2D ECHO LV Diastolic Diameter PLAX 2.9 cm 4.2 - 5.9 / 3.9 - 5.3 cm LV Systolic Diameter PLAX 2.1 cm IVS Diastolic Thickness 1.3 cm 0.6 - 1.0 / 0.6 - 0.9 cm LVPW Diastolic Thickness 1.5 cm 0.6 - 1.0 / 0.6 - 0.9 cm LV Relative Wall Thickness 1.0 RV Internal Dim ED PLAX 2.8 cm LA Volume 45.9 cm??? 18 - 58 / 22 - 52 cm??? M-MODE Aortic Root Diameter MM 3.3 cm LA Systolic Diameter MM 4.1 cm LA Ao Ratio MM 1.2 AV Cusp Separation MM 2.2 cm DOPPLER AV Peak Velocity 127.9 cm/s AV Peak Gradient 6.5 mmHg MV Area PHT 3.7 cm??? Mitral E Point Velocity 76.4 cm/s Mitral A Point Velocity 111.3 cm/s Mitral E to A Ratio 0.7 MV Deceleration Time 206.4 ms MV E' Velocity 3.2 cm/s Mitral E to MV E' Ratio 23.9 TR Peak Velocity 282.1 cm/s TR Peak Gradient 31.8 mmHg Right Ventricular Systolic Press 35.7 mmHg FINDINGS Left Ventricle Moderately increased left ventricular wall thickness. Normal left ventricular systolic function with no obvious regional wall motion abnormalities. Left ventricular ejection fraction is estimated at 55-60 %. Right Ventricle Normal right ventricular size and function. Right ventricular systolic pressure within normal limits. Right Atrium Normal right atrial size. Left Atrium Normal left atrial size. Mitral Valve Structurally normal mitral valve. No evidence for mitral valve prolapse. No mitral stenosis. Trace mitral regurgitation. Aortic Valve Trileaflet aortic valve. No aortic valve stenosis or regurgitation. Tricuspid Valve Structurally normal tricuspid valve. Mild tricuspid regurgitation. Pulmonic Valve Structurally normal pulmonic valve. Trace pulmonic regurgitation. Pericardium Small pericardial effusion. Aorta Normal size aortic root and proximal ascending aorta. CONCLUSIONS Normal left ventricular systolic function Small pericardial effusion Previewed by: Dr. Alexis Arambula MD (Electronically Signed) Final Date: 28 June 2022 17:32
--- NOTE | 2022-06-28 17:56 | CA ---
Lexiscan Nuclear Stress Test Report Name: Katia Gonzales Exam Date: 06/28/2022 10:11 Exam Location: [facility] Stress Ht (in): 65 Wt (lb): 155 BSA: 1.78 Ordering Phys: Amy Ansari Referring Phys: DANK, Technologist: Tanner Felix Age: 62 Gender: F : 1960 Procedure CPT: Indications: Reflex order-Stress test ICD-10 Codes: Patient History: Medications: SEE LIST/CHART Meds past 24 hrs: Pretest Chest Pain: STRESS TEST Lexiscan Protocol Exercise Duration (min:sec): 02:[address] Depressions (mm): Angina Score: Ovalle Score: Resting HR (bpm): 67 Peak HR (bpm): 102 Resting BP (mmHg): 124 / 81 Peak BP (mmHg): 152 / 91 MPHR: 157 Target HR: 133 % MPHR: 65 METS: 1.0 Total Dose: Peak Dose: Atropine: Double Product: 48176 BP Response: Stress Termination: STRESS PROTOCOL COMPLETE Stress Symptoms: NAUSEA, CHEST PAIN Stress Summary: ECG ANALYSIS Resting ECG: Normal sinus rhythm with nonspecific ST-T wave changes Stress ECG: Nondiagnostic ST-T wave changes CONCLUSIONS Inconclusive EKG part of the stress test due to baseline EKG abnormalities Cardial lead portion of the stress test will be reported separately Dr. Alexis Arambula MD (Electronically Signed) Final Date: 28 June 2022 17:55
--- NOTE | 2022-06-28 18:52 | P.GSCN ---
History of Present Illness Consult date: 06/28/22 Reason for Consult: Bilateral parotid swelling Requesting physician: Angelo Wallace History of present illness: This is a 62-year-old white female who is scheduled to undergo a cardiac catheterization tomorrow as a workup for her chest pain. I understand that she failed her stress test. regadenoson was given. She tells me that she thinks the swelling is starting to go down. She only had the swelling for about 24 hours. Denies any dental problems. Denies any throat pain. Denies any other symptoms or issues other than this bilateral parotid swelling. Review of Systems - Constitutional Denies anorexia, Denies fever - EENT Ears, nose, mouth and throat: Denies dysphagia - Cardiovascular Reports chest pain - Respiratory Denies congestion - Gastrointestinal Denies coffee ground emesis - Genitourinary Genitourinary: Denies flank pain - Musculoskeletal Denies frequent falls - Integumentary Denies color changes - Neurological Denies change in smell/taste - Psychiatric Denies change in sleep habits - Endocrine Denies cold intolerance - Allergic/Immunologic Reports allergic rhinitis, Reports urticaria Past Medical History Past Medical History: COPD, GERD/Reflux, Osteoarthritis (OA) Additional Past Medical History / Comment(s): SOB w/activity, ulcerated spots in esophagus History of Any Multi-Drug Resistant Organisms: None Reported Past Surgical History: Breast Surgery, Cholecystectomy, Orthopedic Surgery, Tubal Ligation Additional Past Surgical History / Comment(s): hemangioma removed rt leg, bunion surg., breast biopsy Past Anesthesia/Blood Transfusion Reactions: Motion Sickness Past Psychological History: No Psychological Hx Reported Smoking Status: Never smoker Past Alcohol Use History: None Reported Past Drug Use History: None Reported - Past Family History Family Family Medical History: Coronary Artery Disease (CAD) Additional Family Medical History / Comment(s): Reports coronary artery disease and her family Medications and Allergies Home Medications Medication Instructions Recorded Confirmed Type Sertraline [Zoloft] 150 mg PO DAILY 02/14/14 06/27/22 History Cetirizine HCl [Zyrtec] 10 mg PO DAILY 05/13/20 06/27/22 History Cephalexin [Keflex] 2,000 mg PO ONCE PRN 06/27/22 06/27/22 History Oxybutynin Chloride [Ditropan XL] 10 mg PO DAILY 06/27/22 06/27/22 History clindamycin HCL 300 mg PO TID 06/27/22 06/27/22 History traMADol HCL 50 mg PO Q6H PRN 06/27/22 06/27/22 History Allergies Allergy/AdvReac Type Severity Reaction Status Date / Time No Known Allergies Allergy Verified 06/27/22 20:48 Surgical - Exam Osteopathic Statement: *. No significant issues noted on an osteopathic structural exam other than those noted in the History and Physical/Consult. Vital Signs Temp Pulse Resp BP Pulse Ox 96.8 F L 98 20 120/73 99 06/27/22 18:21 06/27/22 18:21 06/27/22 18:21 06/27/22 18:21 06/27/22 18:21 - General well developed, well nourished, no distress, obese - ENT Bilateral parotid swelling noted. Clear drainage from Stensen's duct. No dental abnormalities noted. normal pinna, normal nares, normal mucosa, no hearing loss, no congestion - Respiratory normal expansion - Integumentary no rash, no growths - Neurologic normal coordination, normal sensation, no disoriented, no confused - Musculoskeletal normal gait, normal posture - Psychiatric oriented to time, oriented to person, oriented to place, speech is normal, memory intact Results - Labs 06/28/22 05:44 06/28/22 05:44 Abnormal Lab Results - Last 24 Hours (Table) 06/27/22 06/28/22 06/28/22 Range/Units 18:47 01:34 05:44 WBC 3.43 L (4.50-10.00) X 10*3/uL RBC 3.81 L (4.10-5.20) X 10*6/uL Hct 36.8 L (37.2-46.3) % MCH 32.3 H (27.0-32.0) pg Carbon Dioxide (20.0-27.5) mmol/L Anion Gap (10.00-18.00) mmol/L Glucose 109 H 113 H (74-99) mg/dL Total Bilirubin 1.8 H (0.2-1.3) mg/dL AST 67 H (14-36) U/L ALT 64 H (4-34) U/L 06/28/22 Range/Units 05:44 WBC (4.50-10.00) X 10*3/uL RBC (4.10-5.20) X 10*6/uL Hct (37.2-46.3) % MCH (27.0-32.0) pg Carbon Dioxide 30.1 H (20.0-27.5) mmol/L Anion Gap 9.90 L (10.00-18.00) mmol/L Glucose (74-99) mg/dL Total Bilirubin (0.2-1.3) mg/dL AST (14-36) U/L ALT (4-34) U/L Diabetes panel 06/27/22 06/28/22 06/28/22 Range/Units 18:47 01:34 05:44 Sodium 140 139 144 (137-145) mmol/L Potassium 3.6 3.8 4.2 (3.5-5.1) mmol/L Chloride 100 102 104 (98-107) mmol/L Carbon Dioxide 28 28 30.1 H (22-30) mmol/L BUN 14 14 12.4 (7-17) mg/dL Creatinine 0.93 0.82 0.8 (0.52-1.04) mg/dL Glucose 109 H 113 H 97 (74-99) mg/dL Hemoglobin A1c (0.0-6.0) % Calcium 9.6 8.8 8.9 (8.4-10.2) mg/dL AST 67 H (14-36) U/L ALT 64 H (4-34) U/L Alkaline Phosphatase 73 (38-126) U/L Total Protein 6.9 (6.3-8.2) g/dL Albumin 4.5 (3.5-5.0) g/dL Triglycerides 105.00 (0.00-149.00) mg/dL HDL Cholesterol 51.80 (40.00-60.00) mg/dL 06/28/22 Range/Units 05:44 Sodium (137-145) mmol/L Potassium (3.5-5.1) mmol/L Chloride (98-107) mmol/L Carbon Dioxide (22-30) mmol/L BUN (7-17) mg/dL Creatinine (0.52-1.04) mg/dL Glucose (74-99) mg/dL Hemoglobin A1c 5.3 (0.0-6.0) % Calcium (8.4-10.2) mg/dL AST (14-36) U/L ALT (4-34) U/L Alkaline Phosphatase (38-126) U/L Total Protein (6.3-8.2) g/dL Albumin (3.5-5.0) g/dL Triglycerides (0.00-149.00) mg/dL HDL Cholesterol (40.00-60.00) mg/dL Thyroid panel 06/28/22 Range/Units 05:44 TSH 2.340 (0.350-5.500) uIU/mL Calcium panel 06/27/22 06/28/22 06/28/22 Range/Units 18:47 01:34 05:44 Calcium 9.6 8.8 8.9 (8.4-10.2) mg/dL Albumin 4.5 (3.5-5.0) g/dL Pituitary panel 06/27/22 06/28/22 06/28/22 Range/Units 18:47 01:34 05:44 Sodium 140 139 144 (137-145) mmol/L Potassium 3.6 3.8 4.2 (3.5-5.1) mmol/L Chloride 100 102 104 (98-107) mmol/L Carbon Dioxide 28 28 30.1 H (22-30) mmol/L BUN 14 14 12.4 (7-17) mg/dL Creatinine 0.93 0.82 0.8 (0.52-1.04) mg/dL Glucose 109 H 113 H 97 (74-99) mg/dL Calcium 9.6 8.8 8.9 (8.4-10.2) mg/dL TSH 2.340 (0.350-5.500) uIU/mL Adrenal panel 06/27/22 06/28/22 06/28/22 Range/Units 18:47 01:34 05:44 Sodium 140 139 144 (137-145) mmol/L Potassium 3.6 3.8 4.2 (3.5-5.1) mmol/L Chloride 100 102 104 (98-107) mmol/L Carbon Dioxide 28 28 30.1 H (22-30) mmol/L BUN 14 14 12.4 (7-17) mg/dL Creatinine 0.93 0.82 0.8 (0.52-1.04) mg/dL Glucose 109 H 113 H 97 (74-99) mg/dL Calcium 9.6 8.8 8.9 (8.4-10.2) mg/dL Total Bilirubin 1.8 H (0.2-1.3) mg/dL AST 67 H (14-36) U/L ALT 64 H (4-34) U/L Alkaline Phosphatase 73 (38-126) U/L Total Protein 6.9 (6.3-8.2) g/dL Albumin 4.5 (3.5-5.0) g/dL Assessment and Plan (1) Parotid hypertrophy Current Visit: Yes Status: Acute Code(s): K11.1 - HYPERTROPHY OF SALIVARY GLAND SNOMED Code(s): 34206753 Plan: Patient has a short-term and transected parotid swelling possibly from the Ashley scan used in the stress test. Other etiologies could be Sjogren syndrome. Doubt viral parotitis. Doubt bacterial parotitis medication as I can induce bilateral parotid swelling or antihistamines which is what she uses regularly because of its anticholinergic effects. Iodine can cause parotid swelling Sjogren syndrome etc. etc. I recommended that we do some limited lab evaluation and trend the swelling to see if this resolves. I given the patient my card and she is to follow up with me in the office of her swelling is persistent. She tells me that she thinks the swelling is going down over the last few hours and we will continue to surveillance swelling. Time with Patient: Greater than 30
[2022-06-28 20:04] LABS: Uric Acid 3.8 mg/dL (3.7-7.4)
[2022-06-29] MEDS: HEPARIN SODIUM,PORCINE/PF 5,000 UNIT/0.5 ML SYRINGE SQ SCH ×3 (00:23→16:25)
[2022-06-29] MEDS ORDERED: HEPARIN SODIUM,PORCINE 10,000 UNIT in SODIUM CHLORIDE 0.9% 1,000 ML IRRIGATION PRN (07:00)
[2022-06-29] MEDS ORDERED: HEPARIN SODIUM,PORCINE 2,500 UNIT in SODIUM CHLORIDE 0.9% 250 ML IRRIGATION PRN (07:00)
[2022-06-29] MEDS ORDERED: NITROGLYCERIN SL TABS 0.4 MG TAB SUBLINGUAL PRN (07:43)
[2022-06-29] MEDS ORDERED: ASPIRIN 325 MG TAB PO STA (07:43)
[2022-06-29] MEDS ORDERED: ATORVASTATIN 80 MG TAB PO STA (07:43)
[2022-06-29] MEDS ORDERED: ALPRAZolam 0.5 MG TAB PO PRN (07:43)
[2022-06-29] MEDS ORDERED: ALPRAZolam 0.25 MG TAB PO PRN (07:43)
[2022-06-29] MEDS ORDERED: SODIUM CHLORIDE 0.9% 1,000 ML in EMPTY BAG 1 BAG IV SCH (07:45)
[2022-06-29 08:54] LABS: African American GFR (CKD) 82 (>60 ml/min/1.73 sqM); Anion Gap 8 mmol/L; Blood Urea Nitrogen 11 mg/dL (7-17); Calcium 8.7 mg/dL (8.4-10.2); Carbon Dioxide 30 mmol/L (22-30); Chloride 98 mmol/L (98-107); Glucose 100 mg/dL (74-99); Non-African American GFR(CKD) 71 (>60 ml/min/1.73 sqM); Potassium 4.4 mmol/L (3.5-5.1); Sodium 136 mmol/L (137-145)
[2022-06-29] MEDS: LORATADINE 10 MG TAB PO SCH (09:08)
[2022-06-29] MEDS: SERTRALINE 50 MG TAB PO SCH (09:08)
[2022-06-29] MEDS: OXYBUTYNIN 10 MG TAB.ER.24 PO SCH (09:09)
--- NOTE | 2022-06-29 09:26 | P.PN ---
Subjective This is a 62-year-old female past medical history of COPD, osteoarthritis, GERD, family history of coronary artery disease. 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 She presents emergency department with complaints of chest discomfort. She underwent workup including a Lexiscan stress test that revealed apparent reversibility along the mid to basal septal wall. Unable to exclude inducible ischemia. Echocardiogram from EF 5560 %, small pericardial effusion. Mild tricuspid regurgitation. Patient seen and examined at bedside, no acute distress. She denies any further chest pain or shortness of breath. Vital signs are stable. Blood pressure 125/72, heart rate 73. Labs: Sodium 136, potassium 4.4, BUN 11, serum creatinine 0.8. GENERAL: Well-appearing, well-nourished and in no acute distress. NECK: Supple without JVD LUNGS: Breath sounds clear to auscultation bilaterally. Respiration equal and unlabored. No wheezes, rales or rhonchi. HEART: Regular rate and rhythm without murmurs, rubs or gallops. S1 and S2 heard. EXTREMITIES: Normal range of motion, no edema. No clubbing or cyanosis. Peripheral pulses intact. ASSESSMENT Chest pain Positive Lexiscan stress test COPD Osteroarthritis GERD Family history of coronary artery disease PLAN Plan for cardiac catheterization with Dr. Arambula today. Patient is agreeable. Keep Patient NPO Continue aspirin, statin I have discussed the risks, benefits and alternative therapies for the above- mentioned procedure and for both sedation/analgesia as well as necessary blood product administration, if indicated, as they pertain to this patient. The patient has indicated understanding and acceptance of the risks and procedures discussed. Questions have been answered appropriately and she is agreeable to move forward with the above-stated procedure. Further recommendations based on above findings. Nurse Practitioner note has been reviewed, I agree with a documented findings and plan of care. Patient was seen and examined. Objective - Vital Signs Vital signs: Vital Signs Temp 98.8 F 06/29/22 00:25 Pulse 90 06/29/22 00:25 Resp 16 06/29/22 00:25 BP 137/80 06/29/22 00:25 Pulse Ox 90 L 06/29/22 00:25 FiO2 Intake & Output 06/28/22 06/29/22 06/29/22 18:59 06:59 18:59 Other: Voiding Method Toilet Toilet # Voids 1 2 - Labs CBC & Chem 7: 06/28/22 05:44 06/29/22 08:08 Labs: Abnormal Lab Results - Last 24 Hours (Table) 06/28/22 06/28/22 Range/Units 05:44 05:44 WBC 3.43 L (4.50-10.00) X 10*3/uL RBC 3.81 L (4.10-5.20) X 10*6/uL Hct 36.8 L (37.2-46.3) % MCH 32.3 H (27.0-32.0) pg Carbon Dioxide 30.1 H (20.0-27.5) mmol/L Anion Gap 9.90 L (10.00-18.00) mmol/L
[2022-06-29] MEDS ORDERED: VERAPAMIL 2.5 MG/ML 2 ML AMP ONE (10:11)
[2022-06-29] MEDS ORDERED: HEPARIN SODIUM 1,000 UN/ML (10ML VL) ONE (10:12)
[2022-06-29] MEDS ORDERED: fentaNYL (PF) 50 MCG/ML 2 ML AMP ONE (10:13)
[2022-06-29] MEDS ORDERED: fentaNYL (PF) 50 MCG/ML 2 ML AMP IV ONE (10:32)
[2022-06-29] MEDS ORDERED: MIDAZOLAM 2 MG/2 ML VIAL IV ONE ×2 (10:32)
[2022-06-29] MEDS ORDERED: SODIUM CHLORIDE 0.9% 1,000 ML IV ONE (10:32)
[2022-06-29] MEDS: LIDOCAINE 1% INJ 10MG/ML (30 ML VIAL-PF) SQ ONE ×2 (10:35→10:47)
[2022-06-29] MEDS ORDERED: IOPAMIDOL-370 125ML BTL INJ ONE (11:03)
[2022-06-29] MEDS ORDERED: RX INFO: IV CONTRAST WAS GIVEN 1 EACH MISC MISCELLANE PRN (11:09)
[2022-06-29] MEDS ORDERED: SODIUM CHLORIDE 0.9% 1,000 ML IV SCH (11:15)
[2022-06-29 13:00] VITALS: PULSE 74; RESP 14; TEMP 97.5
[2022-06-29] MEDS ORDERED: ACETAMINOPHEN TAB 325 MG TAB PO PRN (16:20)
[2022-06-29 16:21] VITALS: BP 134/81
--- NOTE | 2022-06-29 16:33 | P.DS ---
Providers Date of admission: 06/28/22 15:26 Expected date of discharge: 06/29/22 Attending physician: Angelo Wallace MD Consults: 06/27/22 20:35 Consult Physician Urgent Consulting Provider: [facility] Consult Reason/Comments: acute chest pain, possible acs Do you want consulting provider notified?: Yes 06/28/22 09:26 Consult Physician Routine Consulting Provider: Elias Landers Consult Reason/Comments: bilateral parotid gland swelling Do you want consulting provider notified?: Yes Primary care physician: Mariajose Luis Hospital Course: Discharge Diagnosis: Chest pain, acute coronary event ruled out. Bilateral Parotiditis. Seen and evaluated by ENT. Patient encouraged to increase oral intake of fluids and to continue to suck on lemon drops. Patient had significant improvement overnight and to follow up outpatient with ENT. GERD COPD Hospital Course: Patient is a very pleasant 62-year-old female with a past medical history of GERD and COPD. She presented to the emergency department with a chief complaint of chest pain. Patient reports initially she felt as though she was experiencing acid reflux but did not improve with her antireflux medications. Patient describes this chest pain as a burning sensation. She underwent full evaluation in the emergency department. EKG revealed normal sinus rhythm at 88 bpm. Chest x-ray negative for acute cardiopulmonary process. CBC unremarkable. Coags normal findings. D-dimer negative at 0.40. CMP revealing slight elevation in liver enzymes with total bili of 1.8, AST of 67, and ALT of 64. Troponin was negative at less than 0.012. Patient was admitted under our services with consultation to cardiology. Troponins were trended overnight all negative at less than 0.0123 draws. Lipid profile unremarkable. Hemoglobin A1c 5.3%. TSH normal findings at 2.340. Patient reports she is continuing to have burning sensation to right anterior chest and was evaluated by cardiology and taken for lexiscan stress, stress test positve for apparent reversibility along the mid to basal septal wall. Patient also developed bilateral parotid gland swelling and ENT was consulted. Patient was evaluated by ENT stating he believes parotid swelling is believed to be secondary to iodine received during Lexiscan stress test and stating since patient is having improvement in swelling no further testing/treatment necessary. Pt continued to have improvement of parotid gland swelling. She was taken to cardiac cath which was reported to be negative for obstructive CAD. Physical exam: Vital signs reviewed and stable. General: Nontoxic, no distress and appears stated age. Derm: Skin warm and dry, normal coloration for ethnicity. Head: Atraumatic, normocephalic and symmetric. Patient with bilateral parotid gland swelling worse on right. Eyes: EOMs intact, no lid lag, and anicteric sclera Mouth: no lip lesions, mucus membranes moist Cardiovascular: regular rate and rhythm with normal S1S2, no noted murmur, positive posterior tibial pulses bilaterally, and cap refill < 2 seconds. Lungs: Respirations even, regular, and unlabored on room air. Lungs CTA bilaterally, no rhonchi, no rales, no wheezing, and no accessory muscle usage. Abdominal: soft, nontender to palpation, no guarding, no appreciable organomegaly Ext: ROM intact. No gross muscle atrophy, no edema, no contractures Neuro: Speech clear, face symmetrical and CN II-XII grossly intact with no noted focal neuro deficits Psych: Alert and oriented to person, place, time, and situation. Appropriate and pleasant affect. A total of 38 minutes of time were spent preparing this complex discharge summary. Pt was discharged on 06/29/22 at 1:52 PM. Carlo Jackson NP rendered care for this patient independently, reviewed the findings and plan as documented in the note above. I did not physically speak with or examine the patient on this date. Patient Condition at Discharge: Stable Plan - Discharge Summary New Discharge Prescriptions: Continue Sertraline [Zoloft] 150 mg PO DAILY Cetirizine HCl [Zyrtec] 10 mg PO DAILY Oxybutynin Chloride [Ditropan XL] 10 mg PO DAILY traMADol HCL 50 mg PO Q6H PRN PRN Reason: Pain Discontinued Cephalexin [Keflex] 2,000 mg PO ONCE PRN PRN Reason: prior to dental appt clindamycin HCL 300 mg PO TID Discharge Medication List Sertraline [Zoloft] 150 mg PO DAILY 02/14/14 [History] Cetirizine HCl [Zyrtec] 10 mg PO DAILY 05/13/20 [History] Oxybutynin Chloride [Ditropan XL] 10 mg PO DAILY 06/27/22 [History] traMADol HCL 50 mg PO Q6H PRN 06/27/22 [History] Follow up Appointment(s)/Referral(s): Elias Landers DO [Doctor of Osteopathic Medicine] - 07/06/22 9:30 am (Call Dr. Luis's office. You will need a [facility] referral sent to Dr. Schwartz office.) Mariajose Luis MD [Primary Care Provider] - 1-2 days Alexis Arambula MD [STAFF PHYSICIAN] - 1 Week (Office will call patient with appointment date and time) Patient Instructions/Handouts: Chest Pain (DC), Costochondritis (DC), Parotid Duct Obstruction (GEN), Noncardiac Chest Pain (DC) Activity/Diet/Wound Care/Special Instructions: Activity: As tolerated. Take breaks as needed. Diet: Heart healthy and carb consistent diet. Avoid salts, or foods with hidden salts such as canned or boxed foods and frozen dinners. Extra salt makes your heart work harder and traps the fluid in your body for longer. Special Instructions: Take all of your medications as directed and remember to keep all of your doctor's appointments and follow-up as needed. Thank you for allowing us to participate in your care, it was truly a pleasure having you for our patient!!! Discharge Disposition: HOME SELF-CARE
--- NOTE | 2022-06-29 21:46 | LTR ---
LETTER: Dear Dr. Luis: I performed cardiac catheterization on Katia Gonzales. A detailed catheterization was enclosed for your records. In brief, this pleasant 62-year-old lady was admitted to [facility] with chest pain and ruled out for myocardial infarction, underwent a stress test that showed ischemia, due to which she was advised to undergo cardiac catheterization, which revealed normal coronary arteries. Thank you for allowing us to participate with this pleasant lady. MMCHRISTIANE / IJN: [id number] /
--- NOTE | 2022-06-29 21:46 | CC ---
CARDIAC CATHETERIZATION REPORT INDICATION: Chest pain with abnormal stress test. PROCEDURE NOTE: After obtaining informed consent, left heart catheterization and coronary angiogram were performed via the right femoral artery using standard Daniel catheters. The patient tolerated the procedure well without any obvious immediate complications. A femoral angiogram was performed, and Angio-Seal was deployed for hemostasis. The patient received moderate conscious sedation. Total sedation time was 27 minutes. FINDINGS: 1. HEMODYNAMICS: Left ventricular end-diastolic pressure is 10 mmHg. There is no significant gradient across the aortic valve. 2. LEFT VENTRICULOGRAM: Left ventriculogram is not performed. 3. ANGIOGRAPHIC DATA: a.Left main coronary artery: Left main coronary artery is a normal-sized vessel and is free of stenosis. It divides into left anterior descending coronary artery, ramus intermedius, and circumflex coronary artery. LAD and its branches, ramus, and circumflex coronary artery are free of significant stenosis. b.Right coronary artery is a dominant vessel and is free of significant disease. CONCLUSIONS: Normal coronary arteries, false-positive stress test. PLAN: I reviewed angiographic data with the patient and told her that her chest pain is noncardiac in origin and the stress test is a false-positive stress test, and management is going to be in the form of risk factor modification. MMODL / IJN: [id number] /
[2022-06-30 02:52] LABS: EBV-EA (IgG) 0.8 AI; EBV-EBNA(IgG) >8.0 AI; EBV-VCA (IgG) 6.8 AI; EBV-VCA (IgM) 0.4 AI
[2022-06-30] MEDS ORDERED: ATORVASTATIN 20 MG TAB PO SCH (09:00)
[2022-06-30] MEDS ORDERED: ASPIRIN 81 MG PO SCH (09:00)
== END 2022-06-29 18:05 | disposition home or self-care (01) | DRG 287 ==
LOC: EC 18:13 → 6NMEDSUR 20:35 → OBSVTOIN 06-28 15:26
PROVIDERS: ADMIT Internal Medicine; ATTEND Internal Medicine
PROC: B2111ZZ Fluoroscopy of Multiple Coronary Arteries using Low Osmolar Contrast (ICD-10-PCS; 2022-06-29)
PROC: 4A023N7 Measurement of Cardiac Sampling and Pressure, Left Heart, Percutaneous Approach (ICD-10-PCS; principal; 2022-06-29 12:30)
DX: R07.9 Chest pain, unspecified (principal); I31.3 Pericardial effusion (noninflammatory); J44.9 Chronic obstructive pulmonary disease, unspecified; I08.1 Rheumatic disorders of both mitral and tricuspid valves; I37.1 Nonrheumatic pulmonary valve insufficiency; M19.90 Unspecified osteoarthritis, unspecified site; K11.20 Sialoadenitis, unspecified; K21.9 Gastro-esophageal reflux disease without esophagitis; K29.70 Gastritis, unspecified, without bleeding; Z79.899 Other long term (current) drug therapy; Z20.822 Contact with and (suspected) exposure to COVID-19; Z82.49 Family history of ischemic heart disease and other diseases of the circulatory system; Z90.49 Acquired absence of other specified parts of digestive tract; Z98.51 Tubal ligation status
CPT/HCPCS: 36415; 71046; 78452; 80048; 80053; 80061; 82310; 83036; 83690; 83735; 83880; 84443; 84484; 84550; 85025; 85379; 85610; 85730; 86235; 86663; 86664; 86665; 86735; 87635; 93005; 93017; 93306; 93458; 96374; 96375; 99285